=== PATIENT | female | born 1985 | race Two or more races ===

== ENCOUNTER 2017-10-23 22:15 | Emergency (ER) | payer SELFPAY ==
[2017-10-23 22:54] LABS: URINE HCG POC HCG NEGATIVE (Negative)
[2017-10-23 23:20] LABS: BILIRUBIN,URINE NEGATIVE (NEG); CLARITY,URINE CLEAR; COLOR,URINE YELLOW; GLUCOSE,URINE NEGATIVE (NEG); NITRITE,URINE NEGATIVE (NEG); PH,URINE 5.5; PROTEIN,URINE NEGATIVE (NEG-TRACE)
[2017-10-23 23:23] LABS: BACTERIA,URINE FEW /HPF (0-FEW); RBC,URINE 0 /HPF (0-2); SQUAMOUS EPITHELIAL CELL,UR MOD /LPF
[2017-10-25 20:12] LABS: CHLAMYDIA PROBE Negative (Negative); GC PROBE Negative (Negative)
== END 2017-10-23 23:57 | disposition home or self-care (01) ==
LOC: ER 22:15
DX: B37.3 Candidiasis of vulva and vagina (principal)
CPT/HCPCS: 81001; 81025; 87491; 87591; 99284; Q0111

== ENCOUNTER 2019-05-20 10:26 | Observation (INO) | payer SELFPAY ==
[2017-10-23 22:44] VITALS: BP 126/62
[~2019-05-20] VITALS: Ht 157.5 cm; Wt 77.1 kg
[~2019-05-20 10:26] MED LIST: FLUC150T PO
[2019-05-20] MEDS ORDERED: IV RINGERS,LACTATED 1000ML 1,000 ML IV SCH (11:58)
[2019-05-20 12:33] LABS: BILIRUBIN,URINE NEGATIVE (NEG); CLARITY,URINE CLEAR; COLOR,URINE YELLOW; NITRITE,URINE NEGATIVE (NEG); PROTEIN,URINE NEGATIVE (NEG-TRACE)
[2019-05-20 12:39] LABS: SQUAMOUS EPITHELIAL CELL,UR MANY /LPF
[2019-05-20 12:40] LABS: BACTERIA,URINE MODERATE /HPF (0-FEW)
== END 2019-05-20 15:51 | disposition home or self-care (01) ==
LOC: 3 SO LND 10:26
PROVIDERS: ADMIT Obstetrics & Gynecology; ATTEND Obstetrics & Gynecology
DX: O26.853 Spotting complicating pregnancy, third trimester (principal); Z3A.39 39 weeks gestation of pregnancy
CPT/HCPCS: 81001; 87086; G0378; G0379

== ENCOUNTER 2019-05-20 19:19 | Inpatient (IN) | payer SELFPAY ==
[~2019-05-20] VITALS: Ht 162.6 cm; Wt 77.4 kg
[2019-05-20] MEDS ORDERED: IV RINGERS,LACTATED 1000ML 1,000 ML IV SCH ×2 (19:21→20:26)
[2019-05-20] MEDS ORDERED: OXYTOCIN 30 UNIT/500 ML PREMIX 500 ML IV ONE (19:58)
[2019-05-20] MEDS ORDERED: OXYTOCIN 10 UNIT/ML VIAL. ONE (19:58)
[2019-05-20] MEDS ORDERED: fentaNYL PF VIAL 100 MCG/2 ML VIAL IV PRN (20:30)
[2019-05-20] MEDS ORDERED: 0.9 % SODIUM CHLORIDE 10 ML DISP.SYRIN. IV PRN ×2 (20:30→21:00)
[2019-05-20] MEDS ORDERED: OXYTOCIN 30 UNIT/500 ML PREMIX 500 ML IV PRN ×2 (20:30→21:00)
[2019-05-20] MEDS ORDERED: ONDANSETRON PF 4 MG/2 ML VIAL. IV PRN (20:30)
[2019-05-20] MEDS ORDERED: ACETAMINOPHEN 325 MG TABLET. PO PRN ×2 (20:30→21:00)
[2019-05-20] MEDS ORDERED: TERBUTALINE 1 MG/ML VIAL. SQ PRN (20:30)
[2019-05-20] MEDS ORDERED: IBUPROFEN 400 MG TABLET. PO PRN (20:30)
[2019-05-20] MEDS ORDERED: MAG HYDROX/ALUMINUM HYD/SIMETH 30 ML ORAL.SUSP PO PRN ×2 (20:30→21:00)
[2019-05-20] MEDS ORDERED: OXYTOCIN 10 UNIT/ML VIAL. IM ONE (20:30)
[2019-05-20] MEDS ORDERED: LIDOCAINE 1% PF 30 ML VIAL. INJ PRN (20:30)
[2019-05-20] MEDS ORDERED: CLINDAMYCIN 600MG PREMIX 50 ML IV ONE (20:45)
--- NOTE | 2019-05-20 20:48 | PDOC ---
GENERAL General: 34 yrs old female came into Hospital 6cm dilated and delivered in few catherine alessandra. Delivered an Alive female baby 6lbs at 19.54hrs.Apgars 8,9,9. EBL 300cc. ALLERGIES Allergies: Allergies Coded Allergies Type Severity Reaction Last Updated Verified Penicillins Allergy Intermediate 05/20/19 Yes shellfish derived Allergy Intermediate Hives 05/20/19 Yes shrimp Allergy Intermediate Rash 05/20/19 Yes ASSESSMENT & PLAN A&P Abdome soft Uterus firm. Lochia normal. No vaginal Tears. LAURA ARMENDARIZ MD May 20, 2019 20:48
[2019-05-20] MEDS ORDERED: oxyCODONE/APAP 5/325 1 TAB TABLET PO PRN (21:00)
[2019-05-20] MEDS ORDERED: diphenhydrAMINE HCL 25 MG CAPSULE PO PRN (21:00)
[2019-05-20] MEDS ORDERED: BENZOCAINE 20% TOPICAL AEROSOL SPRAY 57GM CAN. TP PRN (21:00)
[2019-05-20] MEDS ORDERED: PHENYLEPH/MINERAL OIL/PETROLAT RECTAL OINTMENT TUBE. RC PRN (21:00)
[2019-05-20] MEDS ORDERED: MMR per PROTOCOL. MC PRN (21:00)
[2019-05-20] MEDS ORDERED: MAGNESIUM HYDROXIDE 2,400 MG/30 ML ORAL.SUSP. PO PRN (21:00)
[2019-05-20] MEDS ORDERED: ZOLPIDEM 5 MG TABLET. PO PRN (21:00)
[2019-05-20] MEDS ORDERED: HYDROCORTISONE 1% TOPICAL OINTMENT 30GM TUBE. TP PRN (21:00)
[2019-05-20] MEDS ORDERED: SIMETHICONE 80 MG TAB.CHEW PO PRN (21:00)
[2019-05-20] MEDS: OXYTOCIN 30 UNIT/500 ML PREMIX 500 ML IV PRN ×2 (21:09→21:11)
[2019-05-20 21:11] LABS: BASO % 0 % (0-3); EOS % 0 % (0-3); HEMATOCRIT 36.6 % (36.0-47.0); HEMOGLOBIN 12.4 g/dL (12.0-15.5); LYMPH # 1.1 x10^3/uL (1.0-4.8); LYMPH % 13 % (24-48); MEAN CORPUSCULAR HEMOGLOBIN 31 pg (25-35); MEAN CORPUSCULAR HGB CONC 34 g/dL (31-37); MEAN CORPUSCULAR VOLUME 91 fL (79-100); MONO # 0.5 x10^3/uL (0.0-1.1); MONO % 6 % (0-9); NEUT # 6.6 x10^3/uL (1.8-7.7); NEUT % 80 % (31-73); PLATELET COUNT 129 x10^3/uL (140-400); RED BLOOD COUNT 4.01 x10^6/uL (3.50-5.40); RED CELL DISTRIBUTION WIDTH 13.4 % (11.5-14.5); WHITE BLOOD COUNT 8.2 x10^3/uL (4.0-11.0)
[2019-05-20 21:47] LABS: PLT ESTIMATE ADEQUATE (ADEQUATE)
[2019-05-20] MEDS: IBUPROFEN 200 MG TABLET. PO SCH (23:26)
[2019-05-21] VITALS (7 sets, daily range): BP systolic 95–113; BP diastolic 61–73
[2019-05-21] MEDS: FERROUS SULFATE 325 MG TABLET. PO SCH ×2 (08:00→17:00)
--- NOTE | 2019-05-21 08:35 | PDOC ---
GENERAL General: Patient has no problems today. VITAL SIGNS Vital Signs/I&O: Vital Signs Date Time Temp Pulse Resp B/P (MAP) Pulse Ox O2 Delivery O2 Flow Rate FiO2 05/21/19 08:00 97.8 66 16 98/70 (79) 96 Room Air 97.8 I & O 05/20/19 05/20/19 05/21/19 14:59 22:59 06:59 Intake Total 300 ml Balance 300 ml ALLERGIES Allergies: Allergies Coded Allergies Type Severity Reaction Last Updated Verified Penicillins Allergy Intermediate 05/20/19 Yes shellfish derived Allergy Intermediate Hives 05/20/19 Yes shrimp Allergy Intermediate Rash 05/20/19 Yes MEDS Medications: Current Medications Medications (Trade) Dose Ordered Sig/Dinesh Route PRN Reason Start Time Stop Time Status Last Admin Dose Admin Ringer's Solution 1,000 ml @ 125 mls/hr Q8H IV 05/20/19 20:26 05/21/19 05:36 DC 05/20/19 21:11 Fentanyl Citrate (Fentanyl 2ml Vial) 100 mcg PRN Q20MIN PRN IV Labor pain 05/20/19 20:30 05/20/19 21:07 Oxytocin/Sodium Chloride 500 ml @ 0 mls/hr CONT PRN IV SEE I/O RECORD 05/20/19 20:30 05/20/19 21:11 Oxytocin (Pitocin) 10 unit 1X ONCE IM 05/20/19 20:30 05/20/19 20:39 DC 05/20/19 21:07 Clindamycin Phosphate 50 ml @ 100 mls/hr 1X ONCE IV 05/20/19 20:45 05/20/19 21:14 DC 05/20/19 21:07 Ibuprofen (Motrin) 600 mg Q6HRS PO 05/21/19 00:00 05/20/19 23:26 LAB Lab: Laboratory Tests Test 05/20/19 20:30 05/21/19 05:20 White Blood Count 8.2 x10^3/uL (4.0-11.0) Red Blood Count 4.01 x10^6/uL (3.50-5.40) Hemoglobin 12.4 g/dL (12.0-15.5) Hematocrit 36.6 % (36.0-47.0) 34.7 % (36.0-47.0) L Mean Corpuscular Volume 91 fL (79-100) Mean Corpuscular Hemoglobin 31 pg (25-35) Mean Corpuscular Hemoglobin Concent 34 g/dL (31-37) Red Cell Distribution Width 13.4 % (11.5-14.5) Platelet Count 129 x10^3/uL (140-400) L Neutrophils (%) (Auto) 80 % (31-73) H Lymphocytes (%) (Auto) 13 % (24-48) L Monocytes (%) (Auto) 6 % (0-9) Eosinophils (%) (Auto) 0 % (0-3) Basophils (%) (Auto) 0 % (0-3) Neutrophils # (Auto) 6.6 x10^3/uL (1.8-7.7) Lymphocytes # (Auto) 1.1 x10^3/uL (1.0-4.8) Monocytes # (Auto) 0.5 x10^3/uL (0.0-1.1) Eosinophils # (Auto) 0.0 x10^3/uL (0.0-0.7) Basophils # (Auto) 0.0 x10^3/uL (0.0-0.2) Platelet Estimate Adequate (ADEQUATE) Large Platelets Present Treponema pallidum Antibody Nonreactive (Nonreactive) Hepatitis B Surface Antigen Nonreactive (Nonreactive) Laboratory Tests 05/20/19 20:30 05/21/19 05:20 ASSESSMENT & PLAN A&P Abdomen soft Uterus firm Lochia normal. LAURA ARMENDARIZ MD May 21, 2019 08:35
--- NOTE | 2019-05-21 08:43 | HP ---
ADMIT DATE: 05/20/2019 CHIEF COMPLAINT AND HISTORY OF PRESENT ILLNESS: This patient is a 34-year-old [place] lady who is a 3, para 2, 39 weeks' , came into the hospital with a history of having contractions and at the time of admission to the hospital, cervix dilated to about 6 cm and membranes intact, vertex presenting and patient in active labor. OBJECTIVE: VITAL SIGNS: Stable. ABDOMEN: A 39 weeks' . heart tones are 146 per minute, vertex presenting. EXTREMITIES: No edema of feet. IMPRESSION: 3, para 2, spontaneous labor at 39 weeks' . PLAN: Vaginal delivery. LAURA ARMENDARIZ MD DR: [place]/ray JOB#: [id number] / [id number]
--- NOTE | 2019-05-21 09:12 | OP ---
DATE OF SURGERY: DELIVERY NOTE This patient is a 34-year-old [place] lady who is a 3, para 2, a [place] patient, was admitted to the hospital in active labor. At the time of admission to the hospital, cervix dilated to 6 cm. The patient had a rapid precipitous vaginal delivery. A live female infant delivered at 1954 hours with the scores of 8, 9 and 9 without any problem and she also had a spontaneous delivery of the placenta. No hemorrhage noted. Visualization of perineum revealed no perineal tears. The blood clots were removed from the vaginal area. She did receive 20 units of Pitocin IV bottle of fluid and she also received antibiotics, clindamycin 600 mg 1 dose because she had beta strep positive results from the culture. Mother tolerated the delivery well. Baby is referred to auto damage adjuster for further care and treatment. Estimated blood loss about 300 mL. LAURA ARMENDARIZ MD DR: [place]/ray JOB#: [id number] / [id number]
[2019-05-21] MEDS: DOCUSATE SODIUM 100 MG CAPSULE. PO PRN ×2 (09:34→19:37)
[2019-05-21] MEDS: IBUPROFEN 200 MG TABLET. PO SCH ×3 (09:37→19:36)
[2019-05-21] MEDS ORDERED: DINOPROSTONE 10 MG SUPP.VAG VG ONE (11:00)
[2019-05-22] MEDS: IBUPROFEN 200 MG TABLET. PO SCH
[2019-05-22 06:20] VITALS: BP 89/63
--- NOTE | 2019-05-22 10:40 | PDOC ---
GENERAL General: Patient doing Ok Likes to go home VITAL SIGNS Vital Signs/I&O: Vital Signs Date Time Temp Pulse Resp B/P (MAP) Pulse Ox O2 Delivery O2 Flow Rate FiO2 05/22/19 06:20 97.9 59 16 89/63 (72) 98 97.9 05/21/19 19:10 Room Air I & O 05/21/19 05/21/19 05/22/19 14:59 22:59 06:59 Intake Total 900 ml 500 ml Balance 900 ml 500 ml ALLERGIES Allergies: Allergies Coded Allergies Type Severity Reaction Last Updated Verified Penicillins Allergy Intermediate 05/20/19 Yes shellfish derived Allergy Intermediate Hives 05/20/19 Yes shrimp Allergy Intermediate Rash 05/20/19 Yes ASSESSMENT & PLAN A&P Abdomen soft Lochia normal. Will dismiss pt Home today. Will see her in 6 weeks.in Office. LAURA ARMENDARIZ MD May 22, 2019 10:40
[2019-05-22 13:00] VITALS: BP 98/74
== END 2019-05-22 19:20 | disposition home or self-care (01) | DRG 807 ==
LOC: OBSVTOIN 19:19 → 3 SO LND 19:19
PROVIDERS: ADMIT Obstetrics & Gynecology; ATTEND Obstetrics & Gynecology
PROC: 10E0XZZ Delivery of Products of Conception, External Approach (ICD-10-PCS; principal; 2019-05-22)
DX: O62.3 Precipitate labor (principal); Z37.0 Single live birth; Z3A.39 39 weeks gestation of pregnancy; Z88.8 Allergy status to other drugs, medicaments and biological substances; Z88.0 Allergy status to penicillin; Z91.013 Allergy to seafood
CPT/HCPCS: 36415; 85014; 85025; 86592; 86850; 86900; 86901; 87340; 92585; J2590; J3010; J3490; J7120; G0378